=== PATIENT | female | born 2005 | race Caucasian/White ===

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

== ENCOUNTER 2024-01-17 10:29 | Outpatient (CLI) | payer OTHER, BC, SELFPAY ==
--- NOTE | 2024-01-17 10:30 | US_ITS ---
PROCEDURE: US TRANSVAGINAL CLINICAL INDICATION: AUB,Menorrhagia,pelvic Pain COMPARISON: No exams were available for comparison FINDINGS: Transvaginal sonographic images of the pelvis were obtained. UTERUS: 6.8cm x 4.4cmx 2.8cm anteverted with a combined endometrial thickness of 3.3mm. LEFT OVARY: 1.5cmx2.0cmx2.8cm with a volume of 4.3ml. The left ovary appears polycystic with multiple follicles. The largest follicle measures 1.1 cm. RIGHT OVARY: 3.1cmx 1.5cmx2.2cm with a volume of 5.3ml. The right ovary appears polycystic with multiple follicles. The largest follicle measures 0.8 cm. Both ovaries are seen and appear polycystic. Doppler flow to both ovaries are seen. There a small amount of fluid in the cul-de-sac. IMPRESSION: 1. Anteverted uterus normal in shape and size. The endometrium is thin. 2. Both ovaries are normal in size and appear polycystic. 3. There is a small amount of fluid in the cul-de-sac. Dictated by: Luis Sparrow MD 01/17/2024 13:30 Luis Sparrow MD in OV 01/17/2024 13:30
== END 2024-01-17 23:59 ==
LOC: RAD 10:30
PROVIDERS: PCP Internal Medicine Adolescent Medicine; Visit Provider Obstetrics & Gynecology
DX: N93.9 Abnormal uterine and vaginal bleeding, unspecified (principal); R10.2 Pelvic and perineal pain
CPT/HCPCS: 76830

== ENCOUNTER 2024-07-11 10:02 | Emergency (ER) | payer OTHER, BC, SELFPAY ==
[2024-07-11 10:20] VITALS: BP 122/67; PULSE 63; RESP 18; TEMP 37; O2SAT 96; BMI 16.9
--- NOTE | 2024-07-11 10:40 | CA_ITS ---
FINAL REPORT TECHNIQUE: Multiple transverse and longitudinal images were performed of right the femoral-popliteal deep venous system with augmentation and compression maneuvers. CLINICAL HISTORY: SWELLING/PAIN TO RIGHT CALF, denies trauma. States right leg began hurting 07/10/24 morning after a long commute to work. Pain subsided with movement and exercise. After sitting for long period again pain worsened. Patient states her maternal grandfather has a clotting disorder so she came to [facility] to have leg checked out. FINDINGS: Right lower extremity duplex ultrasound demonstrates normal flow in the deep venous system. There is no abnormal echogenicity to suggest thrombus. There is normal compression and augmentation. IMPRESSION: No evidence of right DVT. Reviewed, Interpreted and Dictated by Marianne Barker MD Transcribed by Pratibha Yusuf Authenticated and [facility]
--- NOTE | 2024-07-11 10:40 | EXP.UTC ---
Discharge Plan Disposition Patient Disposition: Home, Self-Care Condition: Good Prescriptions Prescriptions: No Action progesterone micronized 100 mg Capsule 100 mg PO DAILY thyroid (pork) [[employer] DISPATCHER Thyroid] 30 mg tablet 30 mg PO DAILY Referrals Follow up/Referrals: Sina Kapoor MD [Primary Care Provider] - See instructions Activity Restrictions/Add. Instructions Additional Instructions/Restrictions: Follow-up with primary care If worsening or no improvement return Tylenol or ibuprofen as needed for pain Clinical Impressions Clinical Impression: Acute leg pain Instructions Patient Instructions: DI for Leg Pain Print Language Print Language: [place] Discharge ED Provider: Mahendra ([facility])Morena [facility] HPI General Stated complaint: RT leg pain, no known inj Mode of Arrival: Ambulatory Source of Information: Patient Limitations: No Limitations Time Seen by Provider: 07/11/24 10:40 Description of Symptoms (Recalled from Triage Doc. by RN): PATIENT C/O PAIN AND TIGHTNESS TO RIGHT CALF MUSCLE SINCE YESTERDAY, NO KNOWN INJURY HEENT Symptoms (Recalled from RN notes): No Resp Symptoms (Recalled from RN notes): No Skin Symptoms (Recalled from RN notes): No MS Symptoms (Recalled from RN notes): Yes Functional Status (Recalled from RN notes): WNL History of Present Illness Provider Complaint: 19-year-old female presents for right calf swelling and pain. Patient states she has been seen by the holistic doctor and placed on multiple vitamins and was told her blood was too thick and she was at risk for blood clot. Does have a grandfather that has multiple DVTs, strokes and PEs related to blood clots. Related Data Home Medications ?Medication ?Instructions ?Recorded ?Confirmed progesterone micronized 100 mg 100 mg PO DAILY 07/11/24 07/11/24 capsule thyroid (pork) 30 mg tablet ([employer] DISPATCHER 30 mg PO DAILY 07/11/24 07/11/24 Thyroid) Allergies Allergy/AdvReac Type Severity Reaction Status Date / Time Fish Containing Products Allergy Unknown Verified 07/11/24 10:35 allergy reaction nut - unspecified Allergy Anaphylaxis Verified 07/11/24 10:35 peanut Allergy Anaphylaxis Verified 07/11/24 10:35 shellfish derived Allergy Unknown Verified 07/11/24 10:35 allergy reaction CORTIZONE EARDROPS Allergy Unknown Uncoded 07/11/24 10:35 allergy reaction Worker's Comp Is this a Worker's Comp case?: No [facility] Disclaimer: The information contained in this section may have been updated after the patient was seen, as this information can be updated by other users. Medical History , SOFTWARE DEVELOPMENT ANALYST) Asthma Attention deficit disorder Bipolar II disorder Generalized anxiety disorder Surgical History , SOFTWARE DEVELOPMENT ANALYST) History of wisdom tooth extraction Hx of adenoidectomy Hx of tonsillectomy Family History , SOFTWARE DEVELOPMENT ANALYST) Hypertension Stroke Grandfather Asthma Father Social History , SOFTWARE DEVELOPMENT ANALYST) Smoking Status: Never smoker alcohol intake: never substance use type: denies use current occupational status: other Travel in the last 8 weeks: None number of children: 0 ROS Obtained: Yes Systems reviewed as appropriate & no additional complaints except as documented Physical Exam General General appearance: alert and in no apparent distress Eye Eye exam: Present normal appearance and PERRL ENT ENT exam: Present normal exam Respiratory Respiratory exam: Present normal lung sounds bilaterally Cardiovascular Cardiovascular exam: Present regular rate and normal rhythm Expanded Lower Extremity Exam Right: Leg image: 1. Swelling and tenderness Neurological Exam Neurological exam: Present alert and oriented X3 Skin Skin exam: Present warm and intact Medical Decision Making Medical Records Medical records reviewed: Yes I reviewed the patient's medical records. Ismael Inquiry Pt receiving controlled substance: No Ismael was queried for this patient: No Vital Signs: 07/11/24 10:20 Temperature 98.6 F Temperature Source Oral Pulse Rate [Left Brachial] 63 Respiratory Rate 18 Blood Pressure [Left Arm] 122/67 Blood Pressure Mean [Left Arm] 85 Blood Pressure Source [Left Arm] Automatic Cuff Blood Pressure Position [Left Arm] Sitting 02 Sat by Pulse Oximetry 96 Oxygen Delivery Method Room Air
[2024-07-11 11:30] LABS: INR 1.02 (0.9-1.1); Prothrombin Time 11.4 seconds (10.1-12.5)
[2024-07-11 11:34] LABS: D-Dimer 0.39 ug/mL (0.0-0.5)
[2024-07-11 12:20] VITALS: BP 122/67; PULSE 63; RESP 18; TEMP 37; O2SAT 96
== END 2024-07-11 12:23 | disposition home or self-care (01) ==
PROVIDERS: Emergency Provider Nurse Practitioner Family; PCP Internal Medicine Adolescent Medicine
DX: M79.604 Pain in right leg (principal)
CPT/HCPCS: 85378; 85610; 93971; 99212; 99214; G0463

== ENCOUNTER 2025-08-30 08:10 | Outpatient (CLI) | payer OTHER, BC, SELFPAY ==
--- OUTSIDE RECORDS SUMMARY | 2025-07-28 09:00 | XMS_ITS | Encounter Summary ---
[facility] Address [address] [place] [address] Care Team Providers Care Remelt Pan Tank Operator Name Role Phone Sina Kapoor MD Primary Care Provider [phone] Reason for Visit * Reason Comments Abnormal Lab Encounter Details Date Type Department Care Team (Late st Contact Info) Description 07/28/2025 10:00 AM EDT Office Visit [facility] ENDOCRINOLOGY [address] [place] [address] Priscilla Luis, [address] [place] [address] Elevated DHEA (Primary Dx); PCOS (polycystic ovarian syndrome); Breast tenderness; Other insomnia Social History Tobacco Use Types Packs/Day Years Used Date Smoking Tobacco: Never Smokeless Tobacco: Never Tobacco Cessation:Counseling Given: Not Answered Alcohol Use Standard Drinks/Week Comments Never 0 (1 standard drink = 0.6 oz pur e alcohol) Comments Unknown Sex and Gender Information Value Date Recorded Sex Assigned at Not on file Legal Sex Female 2:49 PM EDT Gender Identity Not on file Sexual Orientation Not on file documented as of this encounter Last Filed Vital Signs Vital Sign Reading Time Taken Comments Blood Pressure 94/48 07/28/2025 10:09 AM EDT Pulse 87 07/28/2025 10:09 AM EDT Temperature - - Respiratory Rate - - Oxygen Saturation 98% 07/28/2025 10:09 AM EDT Inhaled Oxygen Concentration - - Weight 58.2 kg (128 lb 3.2 oz) 07/28/2025 10:09 AM EDT Height 170.2 cm (5' 7 ) 07/28/2025 10:09 AM EDT Body Mass Index 20.08 07/28/2025 10:09 AM EDT documented in this encounter Progress Notes * Priscilla Luis DO - 07/28/2025 10:53 AM EDTAssociated Problem(s): Other insomnia Consider trial of OTC unisom. Discuss alternate prescription meds with PCP. * Priscilla Luis DO - 07/28/2025 10:50 AM EDTAssociated Problem(s): PCOS (polycystic ovarian syndrome) Confirmed diagnosis with prior pelvic US showing cystic ovaries and she has clinical and biochemical signs of hyperandrogenism. No new treatment advised until elevated DHEAS levels have been further evaluated. * Priscilla Luis DO - 07/28/2025 10:49 AM EDTAssociated Problem(s): Elevated DHEA DHEAS Level from 07/02/25 was 970. Recheck fasting AM level. If similar to prior - adrenal imaging will be ordered. Elevations in DHEAS levels can be associate with PCOS. She has s/s of hyperandrogenism within the last 6 months. * Priscilla Luis DO - 07/28/2025 10:48 AM EDTAssociated Problem(s): Breast tenderness Check prolactin level. * Priscilla Luis DO - 07/28/2025 10:00 AM EDT Chief Complaint Patient presents with Abnormal Lab Referring Provider KENDALL Keene Mar Guthrie is a 20 y.o. female had concerns including Abnormal Lab. New patient referred by [facility] functional medicine clinic for elevated DHEA-S level. She recently received a diagnosis of PCOS. Dr. Cortez at [facility] diagnosed. She had an US over a year ago showing cysts. The level was checked 07/02/25 and found to be elevated at 970. Testosterone level was normal. She has noted recent symptoms including breast tenderness, facial hair, fatigue, brain fog, acne, greasy hair. These symptoms started within the last 6 months. Menses are more irregular lately. She has been on progesterone prescribed by the functional medicine clinic. From onset of menses they were initially regular but have always been very heavy. Then became more irregular - still heavy. After being on progesterone for about a year her menses have now been more regular. This current cycle occurred early. No chance for . Difficulty gaining weight in past. 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 She is prescribed PROJECT BUILDER thyroid 30 mg daily, started about a year ago. Around age 14 she had agitation, menstrual irregularities, insomnia - was waking overnight. Had functional med testing with stool sample and was told her cortisol level was inverse of what itshould be. Sleep is still disrupted. Melatonin hasn't helped. Tried prescription meds about 4 years ago but no benefit. Sleep hygiene - no screen time before bed. Progesterone and magnesium has helped her fall asleep but she wakes Past Medical History: Diagnosis Date Anemia Asthma Rocco's thyroiditis History of difficulty sleeping Hypothyroidism Low blood pressure Polycystic ovary syndrome Urinary tract infection Yeast infection Past Surgical History: Procedure Laterality Date TONSILECTOMY, ADENOIDECTOMY, BILATERAL MYRINGOTOMY AND TUBES N/A WISDOM TOOTH EXTRACTION N/A History reviewed. No pertinent family history. Social History Socioeconomic History Marital status: Single Tobacco Use Smoking status: Never Smokeless tobacco: Never Vaping Use Vaping status: Some Days Substances: Nicotine, Flavoring Devices: Disposable Passive vaping exposure: Yes Substance and Sexual Activity Alcohol use: Never Drug use: Never Sexual activity: Defer Allergies Allergen Reactions Nuts Anaphylaxis Shellfish-Derived Products Anaphylaxis Has recently tolerated shrimp Cat Dander Itching and Swelling All animal dander, cockroaches Swimmers Ear Drops [Isopropyl Alcohol] Itching Unknown ear drop, burning Current Outpatient Medications on File Prior to Visit Medication Sig Dispense Refill EPINEPHrine (EPIPEN) 0.3 MG/0.3ML solution auto-injector injection Inject 0.3 mL into the appropriate muscle as directed by prescriber 1 (One) Time. Iron Combinations (IRON COMPLEX PO) Take 1 each by mouth Every Other Day. levocetirizine (Xyzal Allergy 24HR) 5 MG tablet Take 1 tablet by mouth Every Evening. magnesium oxide (MAG-OX) 400 MG tablet Take 1 tablet by mouth Daily. PROJECT BUILDER Thyroid 30 MG tablet Take 1 tablet by mouth Daily. Probiotic Product (PROBIOTIC BLEND PO) Take by mouth. Progesterone (PROMETRIUM) 100 MG capsule Take 110 mg by mouth Daily. VITAMIN D PO Take 10,000 Units by mouth Daily. No current facility-administered medications on file prior to visit. Review of Systems Constitutional: Positive for chills, diaphoresis and fatigue. HENT: Negative. Eyes: Positive for photophobia and itching. Respiratory: Negative. Cardiovascular: Negative. Gastrointestinal: Negative. Endocrine: Positive for cold intolerance. Hair loss Genitourinary: Positive for breast pain, menstrual problem and vaginal discharge. Musculoskeletal: Positive for back pain. Skin: Negative. Allergic/Immunologic: Positive for environmental allergies and food allergies. Neurological: Positive for light-headedness. Hematological: Bruises/bleeds easily. Psychiatric/Behavioral: Positive for agitation, decreased concentration and sleep disturbance. BP 94/48 (BP Location: Left arm, Patient Position: Sitting) Pulse 87 Ht 170.2 cm (67 ) Wt 58.2 kg (128 lb 3.2 oz) SpO2 98% BMI 20.08 kg/m?? Physical Exam Constitutional: well developed; well nourished no acute distress ENT/Thyroid: no thyromegaly no palpable nodules Eyes: EOM intact Conjunctiva: clear Respiratory: breathing is unlabored clear to auscultation bilaterally Cardiovascular: regular rate and rhythm, S1, S2 normal, no murmur, click, rub or gallop Chest: Not performed. Abdomen: Not performed. : Not performed. Musculoskeletal: negative findings: ROM of all joints is normal, no deformities present Skin: dry and warm Neuro: normal without focal findings and mental status, speech normal, alert and oriented x3 Psych: oriented to time, place and person, mood and affect are within normal limits Labs/Imaging 07/02/2025 CBC normal, CMP with glucose 115, creatinine 0.99, GFR 83, LFTs normal, total [id number], TSH 0.55, A1c 5.1, free T4 1.35, DHEA-S 970, LH 2.7, FSH 4.4, estradiol 22.3, vitamin D 32.8, TPO 302, ferritin 19, B12 491 Assessment and Plan Diagnoses and all orders for this visit: 1. Elevated DHEA (Primary) Assessment & Plan: DHEAS Level from 07/02/25 was 970. Recheck fasting AM level. If similar to prior - adrenal imaging will be ordered. Elevations in DHEAS levels can be associate with PCOS. She has s/s of hyperandrogenism within the last 6 months. Orders: - DHEA-Sulfate; Future - 17-Hydroxyprogesterone; Future - Salivary Cortisol, MS - Saliva, Oral Cavity; Future 2. PCOS (polycystic ovarian syndrome) Assessment & Plan: Confirmed diagnosis with prior pelvic US showing cystic ovaries and she has clinical and biochemical signs of hyperandrogenism. No new treatment advised until elevated DHEAS levels have been further evaluated. 3. Breast tenderness Assessment & Plan: Check prolactin level. Orders: - Prolactin; Future 4. Other insomnia Assessment & Plan: Consider trial of OTC unisom. Discuss alternate prescription meds with PCP. Return in about 4 months (around 11/28/2025) for next scheduled follow up. The patient was instructedto contact the clinic with any interval questions or concerns. Electronically signed by: Priscilla Luis DO Lvn Lpn Please note that portions of this note were completed with a voice recognition program. documented in this encounter Plan of Treatment Upcoming Encounters Date Type Department Care Team (Late st Contact Info) Description 11/29/2025 3:00 PM EST Office Visit [facility] ENDOCRINOLOGY [address] [address] Priscilla Luis DO [address] [facility] [address] [place] [address] documented as of this encounter Results * Salivary Cortisol, MS - Saliva, Oral Cavity (08/06/2025 9:33 AM EDT) Cortisol, Salivary 0.068 ug/dL 2024 9:11 AM EDT [facility] Comment: This test was developed and its performance characteristics determined by [facility]. It has not been cleared or approved by the Food and Drug Administration. Reference Range: Children and Adults: 8:00a.m.: 0.025 - 0.600 Noon: <0.010 - 0.330 4:00p.m.: 0.010 - 0.200 Bedtime (9:00p.m.-Midnight): <0.010 - 0.090 Saliva Oral cavity structure / Unknown Collection / Unknown 08/06/2025 9:33 AM EDT 08/06/2025 9:33 AM EDT Nighat [facility] - 08/18/2025 9:11 AM EDT Performed at: - [facility] [address] [place] [id number] Pit Shoveler: Rosibel Rodriguez MD, Phone: [phone] Priscilla Luis DO BODY FLUIDS AND STOOLS OR DERABLES Final Result Performing Organization Address City/[facility]/ZIP Co de Phone Number [facility] [address] [place] [address], * Prolactin (08/06/2025 9:33 AM EDT) Prolactin 12.00 4.79 - 23.30 ng/mL 08/06/2025 3:01 PM EDT [facility] Blood Venipuncture / Unknown 08/06/2025 9:33 AM EDT 08/06/2025 9:33 AM EDT Narrative [facility] - 08/06/2025 3:01 PM EDT Results may be falsely decreased if patient taking Biotin. Priscilla Luis DO LAB BLOOD ORDERABLES Rosa l Result [facility]
[address] [place] [address], [place] [phone] * 17-Hydroxyprogesterone (08/06/2025 9:33 AM EDT) [facility] 17-OH Progesterone LCMS 64 ng/dL 08/11/2025 8:12 AM EDT [facility] Comment: Adult Female Follicular 15 - 70 Luteal 35 - 290 Blood Structure of left upper limb / Unknown Venipuncture / Unknown 08/06/2025 9:33 AM EDT 08/06/2025 9:33 AM EDT Narrative [facility] - 08/11/2025 8:12 AM EDT Test(s) [id number] Progesterone LCMS was developed and its performance characteristics determined by [employer]. It has not been cleared or approved by the Food and Drug Administration. Performed at: [address] [id number] Pit Shoveler: Luz Harris MD, Phone: [phone] [facility] BLOOD ORDERABLES Rosa l Result Performing Organization Address City/[facility]/ZIP Co de Phone Number [facility] [address] [place] [id number], * (ABNORMAL) DHEA-Sulfate (08/06/2025 9:33 AM EDT) [facility] DHEA-Sulfate 454.0(H) 110.0 - 431.7 ug/dL 08/07/2025 8:11 AM EDT [facility] Blood Venipuncture / Unknown 08/06/2025 9:33 AM EDT 08/06/2025 9:33 AM EDT Narrative [facility] - 08/07/2025 8:11 AM EDT Performed at: [address] [place] [id number] Pit Shoveler: Olivier Estrada PhD, Phone: [phone] Priscilla Angel [facility] BLOOD ORDERABLES Rosa l Result [facility] [address] [place] [address], documented in this encounter Visit Diagnoses Diagnosis Elevated DHEA- Primary Other specified disorders of adrenal glands PCOS (polycystic ovarian syndrome) Polycystic ovaries Breast tenderness Mastodynia Other insomnia documented in this encounter Care Teams Remelt Pan Tank Operator Relationship Specialty Start Date End Date Sina Kapoor MD [facility] [address] [place] [address] PCP - General Adolescent Medicine 07/28/25 documented as of this encounter
--- OUTSIDE RECORDS SUMMARY | 2025-08-06 08:45 | XMS_ITS | Encounter Summary ---
Author Organization [facility] Address [address] [place] [address] Care Team Providers Care Bench Molder Apprentice Name Role Phone Sina Kapoor MD Primary Care Provider [phone] Encounter Details Date Type Department Care Team (Late st Contact Info) Description 08/06/2025 9:45 AM EDT Lab [facility] ENDOCRINOLOGY [address] [place] [address] Elevated DHEA; Breast tenderness Social History Tobacco Use Types Packs/Day Years Used Date Smoking Tobacco: Never Smokeless Tobacco: Never Alcohol Use Standard Drinks/Week Comments Never 0 (1 standard drink = 0.6 oz pur e alcohol) Comments Unknown Sex and Gender Information Value Date Recorded Sex Assigned at Not on file Legal Sex Female 2:49 PM EDT Gender Identity Not on file Sexual Orientation Not on file documented as of this encounter Plan of Treatment Upcoming Encounters Date Type Department Care Team (Late st Contact Info) Description 11/29/2025 3:00 PM EST Office Visit [facility]OCR[facility] [address] [place] [address] Priscilla Luis, [address] [place], [place] [id number] documented as of this encounter Procedures Procedure Name Priority Date/Time Associated Diagnosis Comments SALIVARY CORTISOL, MS Routine 08/06/2025 9:33 AM EDT Elevated DHEA 17-HYDROXYPROGESTER ONE Routine 08/06/2025 9:33 AM EDT Elevated DHEA PROLACTIN Routine 08/06/2025 9:33 AM EDT Breast tenderness DHEA-SULFATE Routine 08/06/2025 9:33 AM EDT Elevated DHEA documented in this encounter Results * Salivary Cortisol, MS - Saliva, Oral Cavity (08/06/2025 9:33 AM EDT) Cortisol, Salivary 0.068 ug/dL 2024 9:11 AM EDT [facility] Comment: This test was developed and its performance characteristics determined by [facility]. It has not been cleared or approved by the Food and Drug Administration. Reference Range: Children and Adults: 8:00a.m.: 0.025 - 0.600 Noon: <0.010 - 0.330 4:00p.m.: 0.010 - 0.200 Bedtime (9:00p.m.-Midnight): <0.010 - 0.090 Saliva Oral cavity structure / Unknown Collection / Unknown 08/06/2025 9:33 AM EDT 08/06/2025 9:33 AM EDT Narrative [facility] - 08/18/2025 9:11 AM EDT Performed at: 01 - [employer] [address] [place] [id number] Structural Engineer: Rosibel Rodriguez MD, Phone: [phone] Priscilla Luis DO BODY FLUIDS AND STOOLS OR DERABLES Final Result Performing Organization Address City/State/[facility] Co de Phone Number [facility] [address] [place] [address], * Prolactin (08/06/2025 9:33 AM EDT) Prolactin 12.00 4.79 - 23.30 ng/mL 08/06/2025 3:01 PM EDT [facility] Blood Venipuncture / Unknown 08/06/2025 9:33 AM EDT 08/06/2025 9:33 AM EDT Narrative [facility] - 08/06/2025 3:01 PM EDT Results may be falsely decreased if patient taking Biotin. [facility] BLOOD ORDERABLES Rosa l Result [facility]
[address] [place] [address], * 17-Hydroxyprogesterone (08/06/2025 9:33 AM EDT) 17-OH Progesterone LCMS 64 ng/dL 08/11/2025 8:12 AM EDT [facility] Comment: Adult Female Follicular 15 - 70 Luteal 35 - 290 Blood Structure of left upper limb / Unknown Venipuncture / Unknown 08/06/2025 9:33 AM EDT 08/06/2025 9:33 AM EDT [facility] - 08/11/2025 8:12 AM EDT Test(s) [id number] Progesterone LCMS was developed and its performance characteristics determined by [employer]. It has not been cleared or approved by the Food and Drug Administration. Performed at: - [address] [id number] Structural Engineer: Luz Harris MD, Phone: [phone] Priscilla Angel [facility] BLOOD ORDERABLES Rosa l Result Performing Organization Address City/[facility]/ZIP Co de Phone Number [facility] [address] [place] [address], * (ABNORMAL) DHEA-Sulfate (08/06/2025 9:33 AM EDT) DHEA-Sulfate 454.0(H) 110.0 - 431.7 ug/dL 08/07/2025 8:11 AM EDT [facility] Blood Venipuncture / Unknown 08/06/2025 9:33 AM EDT 08/06/2025 9:33 AM EDT [facility] - 08/07/2025 8:11 AM EDT Performed at: - [facility] [address] [facility], [place], [place] [id number] Structural Engineer: Olivier Estrada PhD, Phone: [phone] Priscilla Luis DO LAB BLOOD ORDERABLES Rosa l Result [facility] [address] [place] [address], documented in this encounter Visit Diagnoses Diagnosis Elevated DHEA Other specified disorders of adrenal glands Breast tenderness Mastodynia documented in this encounter Care Teams Bench Molder Apprentice Relationship Specialty Start Date End Date Sina Kapoor MD [address] [facility] [address] [place] [address] PCP - General Adolescent Medicine 07/28/25 documented as of this encounter
--- OUTSIDE RECORDS SUMMARY | 2025-08-30 08:14 | XMS_ITS | Encounter Summary ---
Author Organization [facility] Address [address] [place] [address] Care Team Providers Care Machine Hamper Maker Name Role Phone Sina Kapoor MD Primary Care Provider [phone] Encounter Details Date Type Department Care Team (Late st Contact Info) Description 12/12/[address] [facility] Division of Pulmonary Medicine [address] [place] [phone] Keena Begum RN Social History Tobacco Use Types Packs/Day Years Used Date Smoking Tobacco: Never Assessed Intimate Partner Violence Answer Date R ecorded If you are in a relationship , do you feel safe in that relationship? Yes 01/27/2025 If you are in a relationship , do you feel safe in that relationship? Yes 01/27/2025 Safety and Environment Answer Date Andrey rded Do you have any concerns of physical abuse, sexual abuse, or neglect of your child? No 01/27/2025 Is an adult hurting you or your family? No 01/27/2025 Has someone ever touched you in a sexual way that was not ok with you? No 01/27/2025 Is someone hurting your or your family? No 01/27/2025 Historical abuse worry Not on file 04/02/202 5 If you have firearms in the home, are they all in locked storage AND unloaded? Not on file 01/27/2025 Comments Unknown Sex and Gender Information Value Date Recorded Sex Assigned at Not on file Legal Sex Female 5:35 AM EST Gender Identity Not on file Sexual Orientation Not on file documented as of this encounter Progress Notes * Keena Begum RN - 12/13/2011 10:55 AM EST Spoke to Margaret and then return call from mom. Reports Mar diagnosed with asthma at approx age 43 years old. Living in [place] at that time (requested records). Mom states problems began with recurrent walking pneumonia . Does not really cough or wheeze. Saw a pediatric civil engineering professional who diagnosed her with asthma. Did much better once she started Qvar and Singulair. Also problems with snoring, pauses, and tilting her head back to breathe as she slept. Sleep study performed 12/15/10 showed mild YAA. T & A completed 08/09/11. Her snoring and sleep improved, and no longer has pauses. However, she has been sick more since her surgery. Currently followed by Kaylee Rehman MD at [facility]. Allergies to peanut, tree nuts, cat, and grass. Used to get eczema when she had egg allergy. Follow-up testing for egg was negative in March, and her skin has been better. Seen at [facility] on 11/26/11. Diagnosed with pansinusitis (per sinus CT- see report). Per mom, treated with Ceftinir X 14 days (Obtained records from Home Office Representative and ER). Mom requested appointment to establish Pulmonary care in [place]. documented in this encounter Plan of Treatment Not on file documented as of this encounter Visit Diagnoses Not on filedocumented in this encounter Care Teams Machine Hamper Maker Relationship Specialty Start Date End Date Sina Kapoor MD [address] [facility] [address] [place] [address] PCP - General External Family Practice 05/27/14 documented as of this encounter
--- OUTSIDE RECORDS SUMMARY | 2025-08-30 08:15 | XMS_ITS | Encounter Summary ---
Author Organization [facility] Address [address] [place] [address] Care Team Providers Care Linemarker Name Role Phone Sina Kapoor MD Primary Care Provider [phone] Encounter Details Date Type Department Care Team (Latest Contact Info) Description 07/28/2025 Travel Social History Tobacco Use Types Packs/Day Years [...] 3:00 PM EST Office Visit [facility] ENDOCR[facility] [address] [place] [phone] Priscilla Luis, DO [address] [place] [address] documented as of this encounter Visit Diagnoses Not on filedocumented in this encounter Care Teams Linemarker Relationship Specialty Start Date End Date Sina Kapoor MD [address] [place] [address] PCP - General Adolescent Medicine 07/28/25 documented as of this encounter
--- OUTSIDE RECORDS SUMMARY | 2025-08-30 08:15 | XMS_ITS | Encounter Summary ---
Author Organization [facility] Address [address] [place] [address] Care Team Providers Care Keeler Polygraph Operator Name Role Phone Sina Kapoor MD Primary Care Provider Reason for Visit * Reason Onset Date Comments Food Allergy: Lab Results 07/21/2020 Encounter Details Date Type Department Care Team (Late st Contact Info) Description 07/21/2020 Telephone [facility] Division of Allergy and Clinical Immunology [address] [place] [phone] Kelsey Boggs MD Allergy [address] [place] [address] [address] [place] [address] Food Allergy: Lab Results Social History Tobacco Use Types Packs/Day Years Used Date Smoking Tobacco: Never Smokeless Tobacco: Never Intimate Partner Violence Answer Date R ecorded [...] 01/27/2025 Historical abuse worry Not on file If you have firearms in the home, are they all in locked storage AND unloaded? Not on file 01/27/2025 Comments Unknown Sex and Gender Information Value Date Recorded Sex Assigned at Not on file Legal Sex Female 5:35 AM EST Gender Identity Not on file Sexual Orientation Not on file documented as of this encounter Miscellaneous Notes * Telephone Encounter - Boggs, Kelsey Dixon MD - 07/21/2020 4:14 PM EDT Mar is a 15 yo female with peanut and tree nut allergies. Results for MIRANDAMAR ( ) as of 07/21/2020 16:13 Ref. Range 07/20/2020 14:52 AL ALMOND Latest Ref Range: <=0.34 kU/L 1.93 (H) AL BRAZILNUT Latest Ref Range: <=0.34 kU/L 0.49 (H) JOSLYN E 1 Latest Ref Range: <=0.09 kU/L <0.09 AL CASHEW Latest Ref Range: <=0.34 kU/L 23.10 (H) ERNESTINA O 3 Latest Ref Range: <=0.09 kU/L 25.30 (H) AL HAZELNUT Latest Ref Range: <=0.34 kU/L 3.01 (H) COR A 1 Latest Ref Range: <=0.09 kU/L <0.09 COR A 14 Latest Ref Range: <=0.09 kU/L 3.96 (H) COR A 8 Latest Ref Range: <=0.09 kU/L <0.09 COR A 9 Latest Ref Range: <=0.09 kU/L 1.83 (H) AL PEANUT Latest Ref Range: <=0.34 kU/L >100.00 (H) TITUS H 1 Latest Ref Range: <=0.09 kU/L 53.00 (H) TITUS H 2 Latest Ref Range: <=0.09 kU/L 66.60 (H) TITUS H 3 Latest Ref Range: <=0.09 kU/L 11.00 (H) TITUS H 8 Latest Ref Range: <=0.09 kU/L <0.09 TITUS H 9 Latest Ref Range: <=0.09 kU/L 0.45 (H) AL PECAN NUT Latest Ref Range: <=0.34 kU/L 7.62 (H) AL PISTACHIO Latest Ref Range: <=0.34 kU/L 20.00 (H) AL WALNUT Latest Ref Range: <=0.34 kU/L 13.90 (H) JUG R 1 Latest Ref Range: <=0.09 kU/L 14.20 (H) JUG R 3 Latest Ref Range: <=0.09 kU/L <0.09 Testing remains positive for peanut. Continue avoidance. Testing remains positive for cashew, pistachio, walnut, pecan, with lower positive testing for almond and [place] nut. Hazelnut is moderately positive. Recommend food challenges for almond and [place] nut. May discuss hazelnut challenge after completion of almond and [place] nut. Continue avoidance until challenges completed. For food challenge, child must be well without symptoms of illness, cough, fever, rhinorrhea, vomiting, rashes, ear infections, sore throat for 1 week before challenge. Must discontinue all antihistamines, antibiotics and cough/cold medications 1 week before challenge. Must bring unexpired Epipen/Au vi-Q to clinic or challenge can not be performed. For nuts, family to purchase the selected tree nut in the shell, and remove from shell at home. Finely crush individually with mallet or food concession manager. Bring at least 2 ounces of each shelled, crushed nut in individual containers. Bring tolerated puree such as apple sauce to mix nuts into. Asthma must be well controlled prior to challenge. A message was left with the family to return the call. Kelsey Boggs MD Supportive Employment Case Manager Allergy/Immunology documented in this encounter Plan of Treatment Not on file documented as of this encounter Visit Diagnoses Not on filedocumented in this encounter Care Teams Keeler Polygraph Operator Relationship Specialty Start Date End Date Sina Kapoor MD [address] [place] [address] [address] [place] [address] PCP - General External Family Practice 05/27/14 documented as of this encounter
--- OUTSIDE RECORDS SUMMARY | 2025-08-30 08:15 | XMS_ITS | Encounter Summary ---
Author Organization [facility] Address [address] [place] [address] Care Team Providers Care Physicist Solid State Name Role Phone Sina Kapoor MD Primary Care Provider [phone] Encounter Details Date Type Department Care Team (Late Contact Info) Description 08/09/2025 Results Follow-Up [facility] ENDOCRINOLOG[facility] [address] [place] [address] Priscilla Luis DO [address] [place] [address] Social History Tobacco Use Types Packs/Day Years [...] Description 11/29/2025 3:00 PM EST Office Visit [facility] [address] [place] [address] Priscilla Luis DO [address] [place] [address] documented as of this encounter Visit Diagnoses Not on filedocumented in this encounter Care Teams Physicist Solid State Relationship Specialty Start Date End Date Sina Kapoor MD [facility] DC [facility] [address] [place] [address] PCP - General Adolescent Medicine 07/28/25 documented as of this encounter
--- OUTSIDE RECORDS SUMMARY | 2025-08-30 08:15 | XMS_ITS | Clinical Summary ---
Author Organization [facility] Address [address] [place] [address] Care Team Providers Care Photoengraver Name Role Phone Sina Kapoor MD Primary Care Provider [phone] Allergies Active Allergy Reactions Criticality Noted Date Comments Cat Dander Itching,Swelling Medium 07/28/2025 All animal dander, cockroaches Nuts Anaphylaxis High 07/28/2025 Shellfish Protein-Containing Drug Products Anaphylaxis High 07/28/2025 Has recently tolerated shrimp Isopropyl Alcohol Itching Medium 07/28/2025 Unknown ear drop, burning Medications EPINEPHrine (EPIPEN) 0.3 MG/0.3ML solution auto-injector injection Inject 0.3 mL into the appropriate muscle as directed by prescriber 1 (One) Time. 5 Active INSIDE STEWARD/STEWARDESS Thyroid 30 MG tablet Take 1 tablet by mouth Daily. Active Progesterone (PROMETRIUM) 100 MG capsule Take 110 mg by mouth Daily. Active VITAMIN D PO Take 10,000 Units by mouth Daily. Active levocetirizine (Xyzal Allergy 24HR) 5 MG tablet Take 1 tablet by mouth Every Evening. Active magnesium oxide (MAG-OX) 400 MG tablet Take 1 tablet by mouth Daily. Active Probiotic Product (PROBIOTIC BLEND PO) Take by mouth. Activ e Iron Combinations (IRON COMPLEX PO) Take 1 each by mouth Every Other Day. Active Active Problems Problem Noted Date Diagnosed Date Iron deficiency 07/28/2025 Elevated DHEA 07/28/2025 Assessment & Plan (07/28/2025 10:49 AM EDT): DHEAS Level from 07/02/25 was 970. Recheck fasting AM level. If similar to prior - adrenal imaging will be ordered. Elevations in DHEAS levels can be associate with PCOS. She has s/s of hyperandrogenism within the last 6 months. PCOS (polycystic ovarian syndrome) 07/28/2025 Assessment & Plan (07/28/2025 10:50 AM EDT): Confirmed diagnosis with prior pelvic US showing cystic ovaries and she has clinical and biochemical signs of hyperandrogenism. No new treatment advised until elevated DHEAS levels have been further evaluated. Breast tenderness 07/28/2025 Assessment & Plan (07/28/2025 10:48 AM EDT): Check prolactin level. Other insomnia 07/28/2025 Assessment & Plan (07/28/2025 11:01 AM EDT): Consider trial of OTC unisom. Discuss alternate prescription meds with PCP. Encounters Date Type Department Care Team Description 08/09/2025 Results Follow-Up [facility] ENDOCRINOLOGY [address] [place] [address] Priscilla Luis DO 08/06/2025 9:45 AM EDT Lab [facility] ENDOCRINOLOGY [address] [place] [address] Elevated DHEA; Breast tenderness 08/06/2025 Travel 07/28/2025 10:00 AM EDT Office Visit [facility] ENDOCRINOLOGY [address] [place] [address] Priscilla Luis DO Elevated DHEA (Primary Dx); PCOS (polycystic ovarian syndrome); Breast tenderness; Other insomnia 07/28/2025 Travel from Last 3 Months Social History Tobacco Use Types Packs/Day Years [...] on file Sexual Orientation Not on file Last Filed Vital Signs Vital Sign Reading [...] Mass Index 20.08 07/28/2025 10:09 AM EDT Plan of Treatment Upcoming Encounters Date Type Department Care Team (Late st Contact Info) Description 11/29/2025 3:00 PM EST Office Visit [facility] ENDOCRINOLOGY [address] [place] [address] PacPriscilla russ, [address] [place] [address] Health Maintenance Due Date Last Done Comments Annual Gynecologic Pelvic an d Breast Exam 2004 HPV VACCINES (1 - 3-dose series) 2019 MENINGOCOCCAL B VACCINE (1 o f 2 - Standard) 2020 Pneumococcal Vaccine 0-49 (1 of 2 - PCV) 2023 TDAP/TD VACCINES (1 - Tdap) 2023 PAP SMEAR 2025 INFLUENZA VACCINE 05/28/2025 ANNUAL PHYSICAL 07/28/2025 HEPATITIS C SCREENING 07/28/2025 MENINGOCOCCAL VACCINE Aged Out No ananda dipesh eligible based on patient's age to complete this topic Procedures Procedure Name Priority Date/Time Associated Diagnosis Comments SALIVARY CORTISOL, MS Routine 08/06/2025 9:33 AM EDT Elevated DHEA PROLACTIN Routine 08/06/2025 9:33 AM EDT Breast tenderness 17-HYDROXYPROGESTER ONE Routine 08/06/2025 9:33 AM EDT Elevated DHEA DHEA-SULFATE Routine 08/06/2025 9:33 AM EDT Elevated DHEA SCANNED - LABS 07/02/2025 from Last 3 Months Results * Salivary Cortisol, MS - Saliva, [...] AM EDT 08/06/2025 9:33 AM EDT Narrative [facility] - 08/18/2025 9:11 AM EDT Performed at: 01 - [employer] [address] [place] [id number] Orthopedic Podiatrist: Rosibel Rodriguez MD, Phone: [phone] Priscilla Luis DO BODY FLUIDS AND STOOLS OR DERABLES Final Result [facility] [address] [place] [address], * 17-Hydroxyprogesterone (08/06/2025 9:33 AM EDT) 17-OH Progesterone LCMS 64 ng/dL 08/11/2025 8:12 AM EDT [facility] Comment: Adult Female Follicular 15 - 70 Luteal 35 - 290 Blood Structure of left upper limb / Unknown Venipuncture / Unknown 08/06/2025 9:33 AM EDT 08/06/2025 9:33 AM EDT Narrative [facility] - 08/11/2025 8:12 AM EDT Test(s) [id number] Progesterone LCMS was developed and its performance characteristics determined by [employer] [facility]. It has not been cleared or approved by the Food and Drug Administration. Performed at: - [address] [id number] Orthopedic Podiatrist: Luz Harris MD, Phone: [phone] [facility] BLOOD ORDERABLES Rosa l Result Performing Organization Address [facility] Co de Phone Number [facility] [address] [place] [address], [place] [phone] * Prolactin (08/06/2025 9:33 AM EDT) Pathologist [facility] Prolactin 12.00 4.79 - 23.30 ng/mL 08/06/2025 3:01 PM EDT [facility] Blood Venipuncture / Unknown 08/06/2025 9:33 AM EDT 08/06/2025 9:33 AM EDT [facility] - 08/06/2025 3:01 PM EDT Results may be falsely decreased if patient taking Biotin. [facility] BLOOD ORDERABLES Rosa l Result Performing Organization Address [facility] de Phone Number [facility]
[address] [place] [address], * (ABNORMAL) DHEA-Sulfate (08/06/2025 9:33 AM EDT) DHEA-Sulfate 454.0(H) 110.0 - 431.7 ug/dL 08/07/2025 8:11 AM EDT [facility] Blood Venipuncture / Unknown 08/06/2025 9:33 AM EDT 08/06/2025 9:33 AM EDT Narrative [facility] - 08/07/2025 8:11 AM EDT Performed at: - [address] [id number] Orthopedic Podiatrist: Olivier Estrada PhD, Phone: [phone] Priscilla Luis DO LAB BLOOD ORDERABLES Rsoa l Result [facility] [address] [place] [address], * LABS SCANNED (07/02/2025) [facility] BLOOD ORDERABLES Final Re sult from Last [address] [place] [id number] [facility] Care Teams Photoengraver Relationship Specialty Start Date End Date Sina Kapoor MD [address] [place] [address] PCP - General Adolescent Medicine 07/28/25
--- OUTSIDE RECORDS SUMMARY | 2025-08-30 08:16 | XMS_ITS | Encounter Summary ---
Author Organization [facility] Address [address] [place] [address] Care Team Providers Care Clinical Unit Coordinator Name Role Phone Sina Kapoor MD Primary Care Provider [phone] Encounter Details Date Type Department Care Team (Latest Contact Info) Description 08/06/2025 Travel Social History Tobacco Use Types Packs/Day [...] HOSPITAL ENDOCRINOLOGY [address] [place] [address] Priscilla Luis, DO [address] [place] [address] documented as of this encounter Visit Diagnoses Not on filedocumented in this encounter Care Teams Clinical Unit Coordinator Relationship Specialty Start Date End Date Sina Kapoor MD [address] [place] [address] PCP - General Adolescent Medicine 07/28/25 documented as of this encounter
--- OUTSIDE RECORDS SUMMARY | 2025-08-30 08:16 | XMS_ITS | Clinical Summary ---
Author Organization [facility] Address [address] [place] [address] Care Team Providers Care Emr Analyst Name Role Phone Sina Kapoor MD Primary Care Provider Source Comments [facility] is fully rolled out with thefollowing exceptions:[facility] Allergies Active Allergy Reactions Criticality Noted Date Comments [place] - Food 01/27/2025 [place] Nut - Food 01/27/2025 Cashew - Food 01/27/2025 Crab - Food 01/27/2025 Hazelnut - Food 01/27/2025 Lobster - Food 01/27/2025 Other 12/15/2010 Cats, grass, dogs, cockroaches Peanut - Food High 01/27/2025 Pecan - Food 01/27/2025 Pistachio - Food 01/27/2025 Scallops - Food 01/27/2025 [place], Swiss - Food 01/27/2025 Medications childrens multivitamin (FLINTSTONES) chewable tablet Take 1 Tab by mouth 1 time daily. Active fluticasone propionate (FLONASE) 50 MCG/ACT nasal sprayIndications :Allergic rhinitis due to animal hair and dander Give 1 [place] into each side of nose 2 times a day. 1 Bottle 11 05/29/20 18 Active Additional Information Patient not taking.Reported on 01/27/2025 albuterol 90 mcg/act inhaler Take 4 Puffs by inhalation every 4 hours as needed for wheezing or cough (3). 1 Inhaler 1 06/05/20 19 Active Additional Information Patient not taking.Reported on 01/27/2025 loratadine (CLARITIN) 10 MG tablet Take 10 mg by mouth 1 time a day as needed for allergies. Active fluticasone (FLOVENT) 44 MCG/ACT inhaler Take 2 Puffs by inhalation 2 times a day. 1 gm 3 07/20/20 20 Active Additional Information Patient not taking.Reported on 01/27/2025 montelukast (SINGULAIR) 10 MG tablet Take by mouth. Activ e FLUoxetine (PROzac) 40 MG capsule 01/23/20 22 Active MONO-LINYAH 0.25-35 MG-MCG tablet 02/04/20 22 Active QUEtiapine (SEROquel) 50 MG tablet 02/18/20 22 Active BATH MIX OPERATOR THYROID 15 MG tablet 01/07/20 25 Active BATH MIX OPERATOR THYROID 30 MG tablet 01/07/20 25 Active EPINEPHrine (EPIPEN or AUVI-Q) 0.3 MG/0.3ML auto-injector Inject 0.3 mL intramuscularly as directed for anaphylaxis. 4 each 01/28/20 25 Active budesonide-formo terol (SYMBICORT) 160-4.5 MCG/ACT inhaler Inhale 1 puff as needed, with MAXIMUM of 12 puffs per day. 10.2 gm 2 01/28/20 25 Active AUVI-Q 0.3 MG/0.3ML auto-injector Inject 0.3 mL intramuscularly as directed for anaphylaxis. 4 each 01/28/20 25 Active Active Problems Problem Noted Date Diagnosed Date Asthma 03/07/2012 Eczema 03/07/2012 Allergic rhinitis 12/18/2011 Food allergy 12/18/2011 Sleep disorder breathing 12/05/2010 Resolved Problems Problem Noted Date Diagnosed Date Resolved Date Sinusitis 12/18/2011 03/05/2012 Extrinsic asthma, unspecified 12/13/2011 03/07/2012 Overview (08/24/2025): Updated as part of IMO process, approved by Dr.[place]. Family History Medical History Relation Name Comments Allergies Father Asthma Father Environmental Allergies Father Eczema Mother Psoriasis Mother Relation Name Status Comments Father Mother Social History Tobacco Use Types Packs/Day Years [...] Sign Reading Time Taken Comments Blood Pressure 131/63 01/27/2025 8:59 AM EDT Pulse 93 01/27/2025 8:59 AM EDT Temperature 36.6 C (97.9 F) 01/27/2025 9:39 AM EDT Respiratory Rate 16 02/21/2022 10:0 9 AM EDT Oxygen Saturation 99% 08/11/2014 12: 41 PM EDT Inhaled Oxygen Concentration - - Weight 48.5 kg (106 lb 14.8 oz) 01/27/2025 8:59 AM EDT Height 166.3 cm (5' 5.47 ) 01/27/2025 8:59 AM ED T Body Mass Index 17.54 01/27/2025 8:59 AM EDT Plan of Treatment Health Maintenance Due Date Last Done Comments MMR IMMUNIZATION (1 of 1 - Standard series) 2005 DTAP/Tdap/Td IMMUNIZATION (1 - Tdap) 2011 VARICELLA IMMUNIZATION (1 of 2 - 13+ 2-dose series) 2017 HPV IMMUNIZATION (1 - 3-dose series) 2019 MENINGOCOCCAL B VACCINE (1 o f 2 - Standard) 2020 HEPATITIS B IMMUNIZATION (1 of 3 - 19+ 3-dose series) 2023 PNEUMOCOCCAL IMMUNIZATION (1 of 2 - PCV) 2023 AMB SEASONAL FLU VACCINE (#1) 06/28/2025 COVID-19 Vaccine (1 - 2023-2 5 season) 2025 HEPATITIS A IMMUN (OPTIONAL 2-17 YRS) Discontinued 02/07/2018 HIB IMMUNIZATION Aged Out No longer e ligible based on patient's age to complete this topic IPV IMMUNIZATION Aged Out No longer e ligible based on patient's age to complete this topic MCV4 IMMUNIZATION Aged Out No longer eligible based on patient's age to complete this topic Respiratory Syncytial Virus (RSV) <20mo Aged Out No longer eligible b ased on patient's age to complete this topic Insurance GABRIELLA FRANCIS-TRADITIONAL CIG[employer] GABRIELLA BOND NON-TRADITIONAL Member Subscriber Plan / Payer ( fective 2019-Present) Name:Mar Jean Relation to Subscriber:Stepson or Stepdaughter Name:ANEESH RUIZ Date of :1977 (Home) Address: [address] [place] [address] Payer ID:[id number] (NAIC) Type:HMO Address: [address] * Guarantor: [facility] Account Type Relation to Patient Date of Phone Billing Address Research Visit [facility] [address] [facility] [place] [address] Care Teams Emr Analyst Relationship Specialty Start Date End Date Sina Kapoor MD [address] [facility] [address] [place] PCP - General External Family Practice 05/27/14
[2025-08-30 08:26] LABS: Hematocrit 43.9 % (37.0-47.0); Hemoglobin 14.7 g/dL (12.2-16.2); Mean Corpuscular HGB Conc 33.5 g/dL (31.8-35.4); Mean Corpuscular Hemoglobin 29.9 pg (27.0-31.2); Mean Corpuscular Volume 89.2 fl (81-99); Platelet Count 209 K/mm3 (142-424); Red Blood Count 4.92 M/mm3 (4.20-5.40); White Blood Count 6.6 K/mm3 (4.8-10.8)
[2025-08-30 09:23] LABS: Alanine Aminotransferase 14 U/L (12-78); Albumin Level 4.0 g/dl (3.5-5.0); Albumin/Globulin Ratio 1.5 (1.1-1.8); Anion Gap 11.0 mEq/L (5-15); Aspartate Amino Transferase 22 U/L (14-36); Blood Urea Nitrogen 8 mg/dl (7-17); Calcium 9.0 mg/dl (8.4-10.2); Carbon Dioxide 27 mmol/L (22.0-30.0); Chloride 102 mmol/L (98-107); Creatinine,Serum 0.90 mg/dl (0.52-1.04); Estimated Glomerular Filt Rate 79 ml/min (>60); GFR (African American) 96 ML/MIN (>60); Globulin 2.6 g/dL (1.3-3.2); Glucose 94 mg/dl (74-100); Potassium 4.0 mmoL/L (3.5-5.1); Sodium 136 mmol/L (136-145); Total Protein,Serum 6.6 g/dl (6.3-8.2)
[2025-08-30 09:52] LABS: Thyroid Stimulating Hormone 1.81 uIU/mL (0.465-4.68)
[2025-08-30 10:07] LABS: RBC Morphology Normal; Total Cells Counted 100
[2025-08-30 10:51] LABS: Hemoglobin A1C 4.9 % (4.0-6.0)
[2025-08-30 12:03] LABS: Alkaline Phosphatase 66 U/L (38-126); Bilirubin,Total 0.6 mg/dl (0.2-1.3)
[2025-08-31 10:13] LABS: Insulin Level Total 7.7 uIU/mL (2.6-24.9)
== END 2025-08-30 23:59 | disposition home or self-care (01) ==
LOC: LAB 08:12
PROVIDERS: PCP Internal Medicine Adolescent Medicine; Visit Provider Obstetrics & Gynecology
DX: E28.2 Polycystic ovarian syndrome (principal); N96 Recurrent pregnancy loss; N97.9 Female infertility, unspecified
CPT/HCPCS: 36415; 80053; 82166; 83036; 83525; 84146; 84443; 85007; 85014; 85018; 85048; 85049

== ENCOUNTER 2025-09-02 10:38 | Emergency (ER) | payer OTHER, BC, SELFPAY ==
--- OUTSIDE RECORDS SUMMARY | 2025-07-28 09:00 | XMS_ITS | Encounter Summary ---
[facility] Address [address] [place] [address] Care Team Providers Care Box Sealing Machine Catcher Name Role Phone Sina Kapoor MD Primary Care Provider [phone] Reason for Visit * Reason Comments Abnormal Lab Encounter Details Date Type Department Care Team (Late st Contact Info) Description 07/28/2025 10:00 AM EDT Office Visit [facility] END[facility] [address] [place] [address] Priscilla Luis, [address] [place] [address] Elevated DHEA (Primary Dx); PCOS (polycystic ovarian [...] including Abnormal Lab. New patient referred by [facility] functional medicine clinic for elevated DHEA-S level. She recently received a diagnosis of PCOS. Dr. Cortez at [facility] diagnosed. She had an US over a [...] with elevated TPO antibody. She is prescribed WARP TESTER thyroid 30 mg daily, started about a [...] tablet Take 1 tablet by mouth Daily. WARP TESTER Thyroid 30 MG tablet Take 1 tablet [...] creatinine 0.99, GFR 83, LFTs normal, total [id number], TSH 0.55, A1c 5.1, free T4 1.35, [...] concerns. Electronically signed by: Priscilla Luis DO Rotoprinter Please note that portions of this note were completed with a voice recognition program. documented in this encounter Plan of Treatment Upcoming Encounters Date Type Department Care Team (Late st Contact Info) Description 11/29/2025 3:00 PM EST Office Visit [facility] [address] [address] Priscilla Luis DO [address] [facility] [address] [place] [address] documented as of this encounter Results * [...] AM EDT 08/06/2025 9:33 AM EDT Nighat [facility] - 08/18/2025 9:11 AM EDT Performed at: - [employer] [address] [place] [id number] Indian Blanket Weaver: Rosibel Rodriguez MD, Phone: [phone] Priscilla Luis DO BODY FLUIDS AND STOOLS OR DERABLES Final Result Performing Organization Address City/[facility]/ZIP Co de Phone Number [facility] [address] [place] [address], * Prolactin (08/06/2025 9:33 AM EDT) Prolactin 12.00 4.79 - 23.30 ng/mL 08/06/2025 3:01 PM EDT [facility] Blood Venipuncture / Unknown 08/06/2025 9:33 AM EDT 08/06/2025 9:33 AM EDT Narrative [facility] - 08/06/2025 3:01 PM EDT Results may be falsely decreased if patient taking Biotin. Priscilla Luis DO LAB BLOOD ORDERABLES Rosa l Result [facility]
[address] [place] [address], [place] [phone] * 17-Hydroxyprogesterone (08/06/2025 9:33 AM EDT) [facility] 17-OH Progesterone LCMS 64 ng/dL 08/11/2025 8:12 AM EDT [facility] Comment: Adult Female Follicular 15 - 70 Luteal 35 - 290 Blood Structure of left upper limb / Unknown Venipuncture / Unknown 08/06/2025 9:33 AM EDT 08/06/2025 9:33 AM EDT Narrative [facility] - 08/11/2025 8:12 AM EDT Test(s) [id number] Progesterone LCMS was developed and its performance characteristics determined by [employer]. It has not been cleared or approved by the Food and Drug Administration. Performed at: [address] [id number] Indian Blanket Weaver: Luz Harris MD, Phone: [phone] Priscilla [facility] BLOOD ORDERABLES Rosa l Result Performing Organization Address City/[facility]/ZIP Co de Phone Number [facility] [address] [place] [address], * (ABNORMAL) DHEA-Sulfate (08/06/2025 9:33 AM EDT) [facility] DHEA-Sulfate 454.0(H) 110.0 - 431.7 ug/dL 08/07/2025 8:11 AM EDT [facility] Blood Venipuncture / Unknown 08/06/2025 9:33 AM EDT 08/06/2025 9:33 AM EDT Narrative [facility] - 08/07/2025 8:11 AM EDT Performed at: [address] [place] [id number] Indian Blanket Weaver: Olivier Estrada PhD, Phone: [phone] Priscilla Angel [facility] BLOOD ORDERABLES Rosa l Result [facility] [address] [place] [address], documented in this encounter Visit Diagnoses Diagnosis Elevated DHEA- Primary Other specified disorders of adrenal glands PCOS (polycystic ovarian syndrome) Polycystic ovaries Breast tenderness Mastodynia Other insomnia documented in this encounter Care Teams Box Sealing Machine Catcher Relationship Specialty Start Date End Date Sina Kapoor MD [facility] [address] [place] [address] PCP - General Adolescent Medicine 07/28/25 documented as of this encounter
--- OUTSIDE RECORDS SUMMARY | 2025-08-06 08:45 | XMS_ITS | Encounter Summary ---
Author Organization [facility] Address [address] [place] [address] Care Team Providers Care Paddle Dyeing Machine Operator Name Role Phone Sina Kapoor MD Primary Care Provider [phone] Encounter Details Date Type Department Care Team (Late st Contact Info) Description 08/06/2025 9:45 AM EDT Lab [facility] ENDOCRINOLOGY [address] [place] [address] Elevated DHEA; Breast tenderness Social [...] Description 11/29/2025 3:00 PM EST Office Visit [facility] ENDOCR[facility] [address] [place] [address] Priscilla Luis, [address] [place], [place] [id number] documented as of this encounter Procedures Procedure [...] 9:11 AM EDT Performed at: 01 - [address] [place] [id number] Tax Technician: Rosibel Rodriguez MD, Phone: [phone] Priscilla Luis DO BODY FLUIDS AND STOOLS OR DERABLES Final Result Performing Organization Address City/State/[facility] Co de Phone Number [facility] [address] [place] [address], * Prolactin (08/06/2025 9:33 AM EDT) Prolactin 12.00 4.79 - 23.30 ng/mL 08/06/2025 3:01 PM EDT [facility] Blood Venipuncture / Unknown 08/06/2025 9:33 AM EDT 08/06/2025 9:33 AM EDT Narrative [facility] - 08/06/2025 3:01 PM EDT Results may be falsely decreased if patient taking Biotin. [facility] BLOOD ORDERABLES Rosa l Result [facility]
[address] [place] [address], * 17-Hydroxyprogesterone (08/06/2025 9:33 AM EDT) 17-OH Progesterone LCMS 64 ng/dL 08/11/2025 8:12 AM EDT [facility] Comment: Adult Female Follicular 15 - 70 Luteal 35 - 290 Blood Structure of left upper limb / Unknown Venipuncture / Unknown 08/06/2025 9:33 AM EDT 08/06/2025 9:33 AM EDT [facility] - 08/11/2025 8:12 AM EDT Test(s) [id number] Progesterone LCMS was developed and its performance characteristics determined by [employer] It has not been cleared or approved by the Food and Drug Administration. Performed at: - [address] [id number] Tax Technician: Luz Harris MD, Phone: [phone] Priscilla Angel [facility] BLOOD ORDERABLES Rosa l Result Performing Organization Address City/[facility]/ZIP Co de Phone Number [facility] [address] [place] [address], * (ABNORMAL) DHEA-Sulfate (08/06/2025 9:33 AM EDT) DHEA-Sulfate 454.0(H) 110.0 - 431.7 ug/dL 08/07/2025 8:11 AM EDT [facility] Blood Venipuncture / Unknown 08/06/2025 9:33 AM EDT 08/06/2025 9:33 AM EDT [facility] - 08/07/2025 8:11 AM EDT Performed at: - [facility] [address] [facility], [place], [place] [id number] Tax Technician: Olivier Estrada PhD, Phone: [phone] Priscilla Luis DO LAB BLOOD ORDERABLES Rosa l Result [facility] [address] [place] [address], documented in this encounter Visit Diagnoses Diagnosis Elevated DHEA Other specified disorders of adrenal glands Breast tenderness Mastodynia documented in this encounter Care Teams Paddle Dyeing Machine Operator Relationship Specialty Start Date End Date Sina Kapoor MD [address] [facility] [address] [place] [address] PCP - General Adolescent Medicine 07/28/25 documented as of this encounter
--- NOTE | 2025-09-02 10:40 | ECG_ITS ---
APPROVED REPORT Exam: Resting ECG HR:93 bpm ECG Measurements Heart Rate 93 AXES OR 130 P 83 QRSd 82 QRS 90 QT 328 T 63 QTc 378 Conclusion SINUS RHYTHM WITH SINUS ARRHYTHMIA NORMAL ECG Electronically signed by : TREVER ANN, 09/06/2025 07:31:33
[2025-09-02 10:42] VITALS: BP 159/103; PULSE 109; RESP 18; TEMP 37; O2SAT 99; BMI 19.5
--- NOTE | 2025-09-02 10:42 | HMH.EDGENADL ---
Discharge Plan Disposition Patient Disposition: Home, Self-Care Condition: Good Prescriptions Prescriptions: No Action magnesium 200 mg tablet 200 mg PO DAILY cholecalciferol (vitamin D3) 50 mcg (2,000 unit) capsule 50 mcg PO DAILY progesterone micronized 100 mg Capsule 100 mg PO DAILY thyroid (pork) [GAS LINE REPAIRER Thyroid] 30 mg tablet 30 mg PO DAILY Referrals Follow up/Referrals: Sina Kapoor MD [Primary Care Provider, Internal Medicine] - See instructions Activity Restrictions/Add. Instructions Additional Instructions/Restrictions: Return to the emergency department for any acute or worsening symptoms such as inability to breathe, facial swelling tongue or lip swelling or if you have any other acute concerns. You can take Benadryl at home if needed. Clinical Impressions Clinical Impression: Allergic reaction Print Language Print Language: [place] Discharge ED Provider: Cynthia Garvin General Adult HPI General Chief complaint: Allergic Reaction Stated complaint: Possible Allergic Reaction Time Seen by Provider: 09/02/25 10:40 History of Present Illness HPI narrative: Patient is a 20-year-old female who presented to the emergency department with clinic with concern for allergic reaction. Patient has an allergy to eggs. Patient states that after she received her flu shot today which was the version without egg she started having tingling in her lips felt like her tongue was swelling and started feeling itchy. Patient reported mild shortness of breath. Patient did not have any nausea vomiting or abdominal symptoms. Patient was given p.o. Benadryl while in clinic and patient was brought here emergently to the emergency department. Patient denies any other associated symptoms. Related Data Home Medications ?Medication ?Instructions ?Recorded ?Confirmed progesterone micronized 100 mg 100 mg PO DAILY 07/11/24 08/27/25 capsule thyroid (pork) 30 mg tablet (GAS LINE REPAIRER 30 mg PO DAILY 07/11/24 08/27/25 Thyroid) cholecalciferol (vitamin D3) 50 50 mcg PO DAILY 08/27/25 08/27/25 mcg (2,000 unit) capsule magnesium 200 mg tablet 200 mg PO DAILY 08/27/25 08/27/25 Allergies Allergy/AdvReac Type Severity Reaction Status Date / Time cortisone Allergy Unknown Verified 08/27/25 09:47 allergy reaction Fish Containing Products Allergy Unknown Verified 08/27/25 09:47 allergy reaction nut - unspecified Allergy Anaphylaxis Verified 08/27/25 09:47 peanut Allergy Anaphylaxis Verified 08/27/25 09:47 shellfish derived Allergy Unknown Verified 08/27/25 09:47 allergy reaction [facility] Disclaimer: The information contained in this section may have been updated after the patient was seen, as this information can be updated by other users. Medical History Asthma Attention deficit disorder Bipolar II disorder Generalized anxiety disorder Surgical History History of wisdom tooth extraction Hx of adenoidectomy Hx of tonsillectomy Family History (Updated 08/27/25 @ 09:50 by ALEKSANDER Banerjee) Father Asthma Grandfather Stroke Lung cancer Brain cancer Other Hypertension Social History (Updated 08/27/25 @ 09:52 by ALEKSANDER Banerjee) Smoking Status: Never smoker smoking status start date: 11 years old smoking status stop date: Working on quitting quit status: quit date established second hand exposure: No alcohol intake: never substance use type: denies use counseling given: Yes counseling provided: provider counseling current occupational status: employed and other Travel in the last 8 weeks?: Inside the [place] number of children: 0 Have you lived/traveled outside US in past 30 days?: No Contact w/someone who lives/traveled outside US past 30 days?: No Exposure to someone with infectious disease in past 14 days?: No Do you have a fever (greater than 100.4 F or 38 C)?: No Have you tested positive for COVID-19?: No Exposed to someone with COVID-19 in past 14 days?: No Do you have a sore throat?: No Do you have a cough?: No Do you have any weakness?: No Do you have any diarrhea?: No Are you experiencing any unusual bleeding?: No Do you have any muscle aches/pain?: No Do you have any abdominal pain?: No Are you experiencing loss of taste or smell?: No Other Medical History Have you received the Flu Vaccine for this season: No Have you received the Pneumonia Vaccine: No ROS Obtained: Yes All systems reviewed & no additional complaints except as documented and Yes Systems reviewed as appropriate & no additional complaints except as documented Physical Exam General General appearance: alert and in no apparent distress Head Head exam: atraumatic, normocephalic and normal inspection Eye Eye exam: Present normal appearance, PERRL and EOMI; Absent scleral icterus ENT ENT exam: Present normal exam and normal external ear exam Neck Neck exam: Present normal inspection and full ROM Chest Chest inspection: Present normal inspection and symmetric chest wall rise Respiratory Respiratory exam: Present normal lung sounds bilaterally; Absent respiratory distress or wheezes Cardiovascular Cardiovascular exam: Present regular rate, normal rhythm and normal heart sounds Abdominal Exam Abdominal exam: Present soft and distention; Absent tenderness, guarding or rebound Extremities Exam Extremities exam: Present normal inspection and full ROM Back Exam Back exam: Present normal inspection and full ROM Neurological Exam Neurological exam: Present alert and oriented X3 Psychiatric Psychiatric exam: Present normal affect and normal mood Skin Skin exam: Present warm and dry Medical Decision Making Medical Records Medical records reviewed: Yes I reviewed the patient's medical records. Screening: Per USPSTF and CDC recommendations, given the prevalence of disease in our region, it is our hospital?s policy to screen for HIV and viral Hepatitis for all patients aged 18 and over and those with ongoing risk factors. Ismael Inquiry Pt receiving controlled substance: No Vital Signs: 09/02/25 10:42 09/02/25 10:58 09/02/25 11:00 Temperature 98.6 F Temperature Source Oral Pulse Rate 96 H 107 H Pulse Rate [Right] 109 H Respiratory Rate 18 17 17 Blood Pressure 151/93 H 154/99 H Blood Pressure [Right Arm] 159/103 H Blood Pressure Mean [Right Arm] 121 Blood Pressure Source [Right Arm] Automatic Cuff Blood Pressure Position Blood Pressure Position [Right Arm] Sitting 02 Sat by Pulse Oximetry 99 98 99 Oxygen Delivery Method Room Air 09/02/25 11:31 09/02/25 12:00 09/02/25 12:34 Temperature 98.1 F Temperature Source Temporal Artery Scan Pulse Rate 78 64 71 Pulse Rate [Right] Respiratory Rate 15 17 18 Blood Pressure 120/70 115/75 115/70 Blood Pressure [Right Arm] Blood Pressure Mean [Right Arm] Blood Pressure Source [Right Arm] Blood Pressure Position Sitting Blood Pressure Position [Right Arm] 02 Sat by Pulse Oximetry 98 96 Oxygen Delivery Method Room Air Lab Data Lab results reviewed: Yes I reviewed the patient's lab results. Lab Results 09/02/25 10:45: WBC 7.2, RBC 4.90, Hgb 14.9, Hct 43.4, MCV 88.6, MCH 30.4, MCHC 34.3, RDW 11.9, Plt Count 243, MPV 9.8, Neut % (Auto) 58.0, Lymph % (Auto) 27.8, [place] % (Auto) 10.6 H, Eos % (Auto) 2.5, Baso % (Auto) 0.8, Neut # (Auto) 4.2, Lymph # (Auto) 2.0, [place] # (Auto) 0.8, Eos # (Auto) 0.2, Baso # (Auto) 0.1, Sodium 140, Potassium 4.0, Chloride 102, Carbon Dioxide 30, Anion Gap 12.0, BUN 10, Creatinine 0.80, Estimated Creat Clear 100, Estimated GFR 91, Est GFR ( Amer) 110, Glucose 73 L, Calcium 8.8, Total Bilirubin 0.6, AST 35, ALT 21, Alkaline Phosphatase 62, Total Protein 7.0, Albumin 5.1 H, Globulin 1.9, Albumin/Globulin Ratio 2.7 H, Serum HCG, Qual Negative 09/02/25 10:45 09/02/25 10:45 Orders (Tests/Meds): ED MEDICATIONS Discontinued Medications Generic Name Dose Route Start Last Admin Trade Name Freq PRN Reason Stop Dose Admin Famotidine 20 mg 09/02/25 10:40 09/02/25 10:50 Famotidine 20mg/2ml Vial IV 09/02/25 10:41 20 mg ONCE ONE Administration Methylprednisolone Sodium Succinate 125 mg 09/02/25 10:40 09/02/25 10:50 Methylprednisolone Sod Succ 125mg Vial IV 09/02/25 10:41 125 mg ONCE ONE Administration Sodium Chloride 8 ml 09/02/25 10:40 09/02/25 10:51 Sodium Chloride 0.9% 10ml Vial IV 10/02/25 10:39 8 ml NEEDED PRN Administration dilute pepcid ORDERS Category Date Time Status CBC w/Auto Diff [Complete Blood Count Auto Diff] Stat Lab 09/02/25 10:45 Completed CMP [Comprehensive Metabolic Panel] Stat Lab 09/02/25 10:45 Completed HCG Qualitative, Serum Stat Lab 09/02/25 10:45 Completed Medical Decision Narrative: Patient is an otherwise healthy 20-year-old female with an egg allergy who presents to the emergency department with concern for allergic reaction. On arrival, patient was hemodynamically stable with unremarkable vital signs. Differential includes but not limited to: Allergic reaction, anaphylaxis, angioedema, extralight abnormalities, amongst others. On exam, patient had no evidence of angioedema, patient had no facial swelling there is no posterior oropharynx swelling. Patient had no wheezing on exam abdomen was soft and nontender. Patient was otherwise hemodynamically stable with no hypotension. Low concern for anaphylaxis. Patient had already been given p.o. Benadryl therefore patient was given Solu-Medrol as well as Pepcid. Patient was observed in the emergency department for 2 hours. Patient reported significant improvement in her symptoms, patient had no swelling or other associated symptoms. At this time I felt the patient was stable and appropriate for discharge. Patient's labs were reviewed and interpreted by myself: CBC showed no leukocytosis, hemoglobin stable. test negative. Critical Care Critical Care Time Critical Care Time: No
[2025-09-02] MEDS: FAMOTIDINE 20MG/2ML VIAL 20 MG IV (10:50)
[2025-09-02] MEDS: METHYLPREDNISOLONE SOD SUCC 125MG VIAL 125 MG IV (10:50)
[2025-09-02] MEDS: SODIUM CHLORIDE 0.9% 10ML VIAL 8 ML IV (10:51)
[2025-09-02 10:58] VITALS: BP 151/93; PULSE 96; RESP 17; O2SAT 98
--- OUTSIDE RECORDS SUMMARY | 2025-09-02 10:58 | XMS_ITS | Encounter Summary ---
Author Organization [facility] Address [address] [place] [address] Care Team Providers Care Supervisor Glycerin Name Role Phone Sina Kapoor MD Primary Care Provider [phone] Encounter Details Date Type Department Care Team [...] Description 11/29/2025 3:00 PM EST Office Visit [facility] [address] [place] [id number] Priscilla Luis, DO [address] [place] [address] documented as of this encounter Visit Diagnoses Not on filedocumented in this encounter Care Teams Supervisor Glycerin Relationship Specialty Start Date End Date Sina Kapoor MD [address] [place] [address] PCP - General Adolescent Medicine 07/28/25 documented as of this encounter
--- OUTSIDE RECORDS SUMMARY | 2025-09-02 10:58 | XMS_ITS | Clinical Summary ---
Author Organization [facility] Address [address] [place] [address] Care Team Providers Care Skiver Counter Name Role Phone Sina Kapoor MD Primary Care Provider [phone] Allergies Active Allergy Reactions Criticality Noted Date [...] by prescriber 1 (One) Time. 5 Active FINAL INSPECTOR MOTORCYLES Thyroid 30 MG tablet Take 1 tablet [...] Department Care Team Description 08/09/2025 Results Follow-Up [facility] ENDOCRINOLOGY [address] [place] [address] Priscilla Luis DO 08/06/2025 9:45 AM EDT Lab [facility] ENDOCRIN[facility] [address] [place] [address] Elevated DHEA; Breast tenderness 08/06/2025 Travel 07/28/2025 10:00 AM EDT Office Visit [facility] ENDOCRIN[facility]Y [address] [place] [address] Priscilla Luis DO Elevated DHEA (Primary Dx); [...] Description 11/29/2025 3:00 PM EST Office Visit [facility] ENDOCR[facility]Y [address] [place] [address] PacPriscilla russ, [address] [place] [address] Health Maintenance Due Date Last [...] AM EDT 08/06/2025 9:33 AM EDT Narrative [facility] - 08/18/2025 9:11 AM EDT Performed at: 01 - [facility] [address] [place] [id number] Landscaping Supervisor: Rosibel Rodriguez MD, Phone: [phone] Priscilla Luis DO BODY FLUIDS AND STOOLS OR DERABLES Final Result [facility] [address] [place] [address], * 17-Hydroxyprogesterone (08/06/2025 9:33 AM EDT) 17-OH Progesterone LCMS 64 ng/dL 08/11/2025 8:12 AM EDT [facility] Comment: Adult Female Follicular 15 - 70 Luteal 35 - 290 Blood Structure of left upper limb / Unknown Venipuncture / Unknown 08/06/2025 9:33 AM EDT 08/06/2025 9:33 AM EDT Narrative [facility] - 08/11/2025 8:12 AM EDT Test(s) [id number] Progesterone LCMS was developed and its performance characteristics determined by [facility]. It has not been cleared or approved by the Food and Drug Administration. Performed at: - [address] [id number] Landscaping Supervisor: Luz Harris MD, Phone: [phone] [facility] BLOOD ORDERABLES Rosa l Result Performing Organization Address [facility] Co de Phone Number [facility] [address] [place] [address], [place] [phone] * Prolactin (08/06/2025 9:33 AM EDT) Pathologist [facility] Prolactin 12.00 4.79 - 23.30 ng/mL 08/06/2025 3:01 PM EDT [facility] Blood Venipuncture / Unknown 08/06/2025 9:33 AM EDT 08/06/2025 9:33 AM EDT [facility] - 08/06/2025 3:01 PM EDT Results may be falsely decreased if patient taking Biotin. [facility] BLOOD ORDERABLES Rosa l Result Performing Organization Address [facility] de Phone Number [facility]
[address] [place] [address], * (ABNORMAL) DHEA-Sulfate (08/06/2025 9:33 AM EDT) DHEA-Sulfate 454.0(H) 110.0 - 431.7 ug/dL 08/07/2025 8:11 AM EDT [facility] Blood Venipuncture / Unknown 08/06/2025 9:33 AM EDT 08/06/2025 9:33 AM EDT Narrative [facility] - 08/07/2025 8:11 AM EDT Performed at: - [address] [id number] Landscaping Supervisor: Olivier Estrada PhD, Phone: [phone] Priscilla Luis DO LAB BLOOD ORDERABLES Rosa l Result [facility] [address] [place] [address], * LABS SCANNED (07/02/2025) [facility] Onbase LAB BLOOD ORDERABLES Final Re sult from Last [address] [place] [address] [place] [id number] [facility] Care Teams Skiver Counter Relationship Specialty Start Date End Date Sina Kapoor MD [address] [place] [address] PCP - General Adolescent Medicine 07/28/25
--- OUTSIDE RECORDS SUMMARY | 2025-09-02 10:58 | XMS_ITS | Encounter Summary ---
Author Organization [facility] Address [address] [place] [address] Care Team Providers Care Flight Operations Manager Name Role Phone Sina Kapoor MD Primary Care Provider [phone] Encounter Details Date Type Department Care Team (Late st Contact Info) Description 12/12/2011 Abstract [facility] Division of Pulmonary Medicine [address] [place] [phone] Keena Begum RN Social History Tobacco [...] really cough or wheeze. Saw a pediatric retail area manager who diagnosed her with asthma. Did much [...] Currently followed by Kaylee Rehman MD at [facility]. Allergies to peanut, tree nuts, cat, and grass. Used to get eczema when she had egg allergy. Follow-up testing for egg was negative in March, and her skin has been better. Seen at [place] [facility] on 11/26/11. Diagnosed with pansinusitis (per sinus CT- see report). Per mom, treated with Ceftinir X 14 days (Obtained records from [facility] and [facility]). Mom requested appointment to establish Pulmonary care in [place]. documented in this encounter Plan of Treatment Not on file documented as of this encounter Visit Diagnoses Not on filedocumented in this encounter Care Teams Flight Operations Manager Relationship Specialty Start Date End Date Sina Kapoor MD [address] [facility] [address] [place] [address] PCP - General External Family Practice 05/27/14 documented as of this encounter
--- OUTSIDE RECORDS SUMMARY | 2025-09-02 10:58 | XMS_ITS | Encounter Summary ---
Author Organization [facility] Address [address] [place] [address] Care Team Providers Care Sales Operations Director Name Role Phone Sina Kapoor MD Primary Care Provider [phone] Reason for Visit * Reason Onset Date Comments Food Allergy: Lab Results 07/21/2020 Encounter Details Date Type Department Care Team (Late st Contact Info) Description 07/21/2020 Telephone [facility] Division of Allergy and Clinical Immunology [address] [place] [phone] Kelsey Boggs MD Allergy [address] [place] [address] [address] [place] [address] Food Allergy: Lab Results Social [...] with lower positive testing for almond and Brundidge nut. Hazelnut is moderately positive. Recommend food challenges for almond and [place]und[place] nut. May discuss hazelnut challenge after completion of almond and [place]und[place] nut. Continue avoidance until challenges completed. For [...] home. Finely crush individually with mallet or mexican food maker. Bring at least 2 ounces of each shelled, crushed nut in individual containers. Bring tolerated puree such as apple sauce to mix nuts into. Asthma must be well controlled prior to challenge. A message was left with the family to return the call. Kelsey Boggs MD Electrician Supervisor Airplane Allergy/Immunology documented in this encounter Plan of Treatment Not on file documented as of this encounter Visit Diagnoses Not on filedocumented in this encounter Care Teams Sales Operations Director Relationship Specialty Start Date End Date Sina Kapoor MD [address] [place] [address] [address] [place] [address] PCP - General External Family Practice 05/27/14 documented as of this encounter
[2025-09-02 10:59] LABS: Hematocrit 43.4 % (37.0-47.0); Hemoglobin 14.9 g/dL (12.2-16.2); Immature Granulocytes % 0.3 %; Mean Corpuscular HGB Conc 34.3 g/dL (31.8-35.4); Mean Corpuscular Hemoglobin 30.4 pg (27.0-31.2); Mean Corpuscular Volume 88.6 fl (81-99); Nucleated Red Blood Cells % 0 %; Platelet Count 243 K/mm3 (142-424); Red Blood Count 4.90 M/mm3 (4.20-5.40); Red Cell Distribution Width-SD 38.3 fL; White Blood Count 7.2 K/mm3 (4.8-10.8)
--- OUTSIDE RECORDS SUMMARY | 2025-09-02 10:59 | XMS_ITS | Encounter Summary ---
[facility] Address [address] [place] [address] Care Team Providers Care Manager Valuation Name Role Phone Sina Kapoor MD Primary Care Provider [phone] Encounter Details Date Type Department Care Team (Late Contact Info) Description 08/09/2025 Results Follow-Up [facility] [address] [place] [address] Priscilla Luis DO [address] [place] [id number] Social History Tobacco Use Types Packs/Day Years [...] Description 11/29/2025 3:00 PM EST Office Visit [facility] [address] [place] [address] Priscilla Luis DO [address] [place] [address] documented as of this encounter Visit Diagnoses Not on filedocumented in this encounter Care Teams Manager Valuation Relationship Specialty Start Date End Date Sina Kapoor MD [facility] [place] [facility] [address] [place] [address] PCP - General Adolescent Medicine 07/28/25 documented as of this encounter
--- OUTSIDE RECORDS SUMMARY | 2025-09-02 10:59 | XMS_ITS | Encounter Summary ---
Author Organization [facility] Address [address] [place] [address] Care Team Providers Care Spiral Tube Winder Name Role Phone Sina Kapoor MD Primary Care Provider [phone] Encounter Details Date Type Department Care Team [...] CENTER END[facility] [address] [place] [address] Priscilla Luis, DO [address] [place] [address] documented as of this encounter Visit Diagnoses Not on filedocumented in this encounter Care Teams Spiral Tube Winder Relationship Specialty Start Date End Date Sina Kapoor MD [address] [place] [address] PCP - General Adolescent Medicine 07/28/25 documented as of this encounter
--- OUTSIDE RECORDS SUMMARY | 2025-09-02 10:59 | XMS_ITS | Clinical Summary ---
Author Organization [facility] Address [address] [place] [id number] Care Team Providers Care Film Recordist Name Role Phone Sina Kapoor MD Primary Care Provider [phone] Source Comments [facility] is fully rolled out with thefollowing exceptions:[facility] Allergies Active Allergy Reactions Criticality Noted Date Comments Ingalls - Food 01/27/2025 [place] Nut - Food 01/27/2025 Cashew - Food 01/27/2025 Crab - Food 01/27/2025 Hazelnut - Food 01/27/2025 Lobster - Food 01/27/2025 Other 12/15/2010 Cats, grass, dogs, cockroaches Peanut - Food High 01/27/2025 Pecan - Food 01/27/2025 Pistachio - Food 01/27/2025 Scallops - Food 01/27/2025 [place], Tog[place]ese - Food 01/27/2025 Medications childrens multivitamin (FLINTSTONES) chewable tablet Take 1 Tab by mouth 1 time daily. Active fluticasone propionate (FLONASE) 50 MCG/ACT nasal sprayIndications :Allergic rhinitis due to animal hair and dander Give 1 [place] into each side of nose 2 times [...] (SEROquel) 50 MG tablet 02/18/20 22 Active METAL CASTER THYROID 15 MG tablet 01/07/20 25 Active METAL CASTER THYROID 30 MG tablet 01/07/20 25 Active [...] as part of IMO process, approved by Dr.[place]. Family History Medical History Relation Name Comments [...] of :1977 (Home) Address: [address] [place] [address] Payer ID:[id number] (NAIC) Type:HMO Address: [id number] * Guarantor: [facility] Account Type Relation to Patient Date of Phone Billing Address Research Visit [facility] [address] [facility] [place] [address] Care Teams Film Recordist Relationship Specialty Start Date End Date Sina Kapoor MD [address] [facility] [address] [place] PCP - General External Family Practice 05/27/14
[2025-09-02 11:00] VITALS: BP 154/99; PULSE 107; RESP 17; O2SAT 99
[2025-09-02 11:00] LABS: Albumin Level 5.1 g/dl (3.5-5.0); Chloride 102 mmol/L (98-107); Potassium 4.0 mmoL/L (3.5-5.1); Sodium 140 mmol/L (136-145)
[2025-09-02 11:03] LABS: Alanine Aminotransferase 21 U/L (12-78); Albumin/Globulin Ratio 2.7 (1.1-1.8); Alkaline Phosphatase 62 U/L (38-126); Anion Gap 12.0 mEq/L (5-15); Aspartate Amino Transferase 35 U/L (14-36); Bilirubin,Total 0.6 mg/dl (0.2-1.3); Blood Urea Nitrogen 10 mg/dl (7-17); Carbon Dioxide 30 mmol/L (22.0-30.0); Creatinine Clearance Estimated 100 mL/min (50-200); Creatinine,Serum 0.80 mg/dl (0.52-1.04); Estimated Glomerular Filt Rate 91 ml/min (>60); GFR (African American) 110 ML/MIN (>60); Globulin 1.9 g/dL (1.3-3.2); Total Protein,Serum 7.0 g/dl (6.3-8.2)
[2025-09-02 11:04] LABS: Calcium 8.8 mg/dl (8.4-10.2); Glucose 73 mg/dl (74-100); HCG Qualitative, Serum Negative (Negative)
[2025-09-02 11:31] VITALS: BP 120/70; PULSE 78; RESP 15; O2SAT 98
--- NOTE | 2025-09-02 11:45 | PC.NURSE ---
This RN rounds with patient. Pt was noted to be sleeping. Pt states she feels better, and that swelling has improved and does not feel short of breath
[2025-09-02 12:00] VITALS: BP 115/75; PULSE 64; RESP 17; O2SAT 96
[2025-09-02 12:34] VITALS: BP 115/70; PULSE 71; RESP 18; TEMP 36.7; O2SAT 98
== END 2025-09-02 12:34 | disposition home or self-care (01) ==
PROVIDERS: Emergency Provider Student in an Organized Health Care Education/Training Program; PCP Internal Medicine Adolescent Medicine
DX: R06.02 Shortness of breath (principal); R20.2 Paresthesia of skin; T78.40XA Allergy, unspecified, initial encounter
CPT/HCPCS: 80053; 84703; 85025; 93005; 96374; 96375; 99284; J1308; J2919